=== PATIENT | female | born 1955 | race Caucasian/White ===

== ENCOUNTER → 2016-10-13 | Outpatient (REF) ==
--- NOTE | 2016-10-13 16:26 | REP ---
RIGHT KNEE, FIVE VIEWS: HISTORY: Degenerative joint disease. There is no acute fracture or dislocation. There is narrowing of the joint spaces. IMPRESSION: Degenerative change as described above. Signed by Antony Andino MD 10/13/2016 04:23 P
--- NOTE | 2016-10-13 17:14 | REP ---
LUMBOSACRAL SPINE: HISTORY: Degenerative disc disease. There is no acute fracture or subluxation. The intervertebral discs are decreased in height consistent with disc degenerative. Osteophytes are present on T10-L2. There is scoliosis convex to the left. IMPRESSION: Degenerative change as described above. Signed by Antony Andino MD 10/14/2016 08:23 A
== END ==
LOC: M SMT 14:24
PROVIDERS: ATTEND Internal Medicine
DX: Z02.71 Encounter for disability determination (principal)